=== PATIENT | female | born 1995 | race African-American/Black ===

== ENCOUNTER 2023-02-03 18:15 | Emergency (ER) | payer OTHER, SELFPAY ==
--- NOTE | 2023-02-03 18:16 | ED.LOWEXIN ---
HPI - Extremity Injury (Lower) General Chief Complaint: Extremity Injury, Lower Stated Complaint: leg ankle pain,swollen Time Seen by Provider: 02/03/23 18:16 Source: patient Mode of arrival: ambulatory Limitations: no limitations History of Present Illness HPI Narrative: Igor is a 27-year-old female patient presenting to the clinic today with complaints of left fed pain and swelling. She reports symptoms have been going on for 3 days. She denies any known injury. Related Data Home Medications Medication Instructions Recorded Confirmed ergocalciferol (vitamin D2) 1,250 02/03/23 mcg (50,000 unit) capsule Allergies Allergy/AdvReac Type Severity Reaction Status Date / Time No Known Allergies Allergy Verified 02/03/23 18:30 Review of Systems Review of Systems: Pertinent positives per HPI. Patient denies any fever, chills, rash, headache, visual changes, dizziness, cough, runny nose, sore throat, shortness of breath, chest pain, palpitations, nausea, vomiting, diarrhea, constipation, abdominal pain, or any urinary issues. [facility] Comments At the time of my signature, I reviewed and agree with the nursing past medical, surgical, social, and family history. There is no relevant family history pertinent to the patient complaint. Exam Narrative: General: Well-developed, well nourished, in no apparent distress Head: Normocephalic, atraumatic. Cardio: Regular rate and rhythm, s1 and s2 normal, no murmur appreciated. Resp: Clear to auscultation bilaterally, no rhonchi, rales, wheezing or rubs. Musculoskeletal: No deformity,tender to palpation over the dorsal mid foot and ankle, grossly normal range of motion, pain with plantar/dorsal flexion as well as valgus and varus testing, muscle strength strong and equal, peripheral pulse strong, no edema, no cyanosis, normal gait and station Course Course Emergency Course: Portions of this record may have been created with voice recognition software. Level of Care: Express Care Visit Vital Signs Vital signs: Vital signs reviewed MDM - Extremity Injury (Lower) MDM Narrative Medical decision making narrative: At the time of visit patient is resting comfortably on exam table. I suspect patient has a foot sprain. Discussed taking ibuprofen as needed for pain with rice treatment. Supportive measures were discussed with the patient she voiced understanding discharge instructions and agrees to treatment plan. Return precautions were reviewed Differential Diagnosis Differential diagnosis: Likely ankle sprain and strain, ankle fracture and other (Foot fracture) Discharge Plan Discharge Clinical Impression: Acute pain of left foot Patient Disposition: Home, Self-Care Condition: Stable Instructions: Antibiotic Form, Foot Sprain (ED) Additional Instructions: Rest, ice, elevate May wear Imer wrap to help give your foot and ankle some support. Tylenol/motrin for pain as discussed. Gradually bear weight May apply Aspercreme, blue emu, or Voltaren gel to the affected area No running or sports until healed. Work note given for 2 days Follow up with your PCP if symptoms persist more than 1 week. Prescriptions: No Action ergocalciferol (vitamin D2) 1,250 mcg (50,000 unit) capsule Follow-up/Referrals: [facility] [Primary Care Provider] - Stand Alone Forms: Work/School Release IP Time of Disposition: 18:36 Quality NIHSS Nursing Documentation ED NIHSS nursing documentation: reviewed/agree
[2023-02-03 18:29] VITALS: BP 142/94; PULSE 76; RESP 16; TEMP 36.8; O2SAT 100
[2023-02-03 18:30] VITALS: BP 142/94; PULSE 76; RESP 16; TEMP 36.8; O2SAT 100
== END 2023-02-03 18:40 | disposition home or self-care (01) ==
PROVIDERS: Emergency Provider Nurse Practitioner Family
DX: M79.672 Pain in left foot (principal)
CPT/HCPCS: 99202; G0463

== ENCOUNTER 2023-12-25 17:37 | Emergency (ER) | payer OTHER, SELFPAY ==
[2023-12-25 17:46] VITALS: BP 136/84; PULSE 100; RESP 20; TEMP 36.8; O2SAT 100
--- NOTE | 2023-12-25 17:57 | ED.URI ---
HPI - URI/Sore Throat General Chief Complaint: Dental/Oral Stated Complaint: Dental Pain//Sore Throat Time Seen by Provider: 12/25/23 17:57 Source: patient, RN notes reviewed and old records reviewed Mode of arrival: ambulatory Limitations: no limitations History of Present Illness HPI Narrative: Patient presents with complaints of sore throat and left upper dental pain. She reports that she was being treated for strep throat, but was unable to swallow the pills, so did not finish. Now she is concerned that perhaps she still has strep. She is also complaining of about a left upper dental infection. Patient is 21 weeks gestation. She denies any fever, chills, sweats. She denies any injury or trauma. She has not been taking anything for her symptoms. She is able to manage own secretions, no drooling or stridor Related Data Home Medications Medication Instructions Recorded Confirmed aspirin 81 mg chewable tablet 2 tablet PO DAILY 12/25/23 12/25/23 nifedipine 30 mg tablet,extended 30 mg PO DAILY 12/25/23 12/25/23 release vitamin with calcium 1 tablet PO DAILY 12/25/23 12/25/23 no.72-iron 27 mg-folic acid 1 mg tablet (M-Giuliana Plus) Allergies Allergy/AdvReac Type Severity Reaction Status Date / Time No Known Allergies Allergy Verified 12/25/23 17:39 Review of Systems Review of Systems: All systems reviewed & are unremarkable except as noted in HPI and below Constitutional: Constitutional: Reports no additional constitutional complaints ENT: Reports system reviewed and no additional complaints, except as documented, Reports facial pain, Reports sore throat and Reports other (Dental pain) Cardiovascular: Cardiovascular: Reports no additional cardiovascular complaints Respiratory: Respiratory: Reports no additional respiratory complaints Gastrointestinal: Gastrointestinal: Reports no additional gastrointestinal complaints [facility] Comments At the time of my signature, I reviewed and agree with the nursing past medical, surgical, social, and family history. There is no relevant family history pertinent to the patient complaint. Exam Const: General: cooperative, no acute distress, alert and awake Orientation/consciousness: oriented to person, oriented to place and oriented to time HENMT: Head: normal to inspection Ears: TM's normal bilaterally Mouth: Yes moist mucous membranes Teeth and gingiva: abnormal tooth and associated gingiva (Left upper) Resp: Effort & Inspection: normal respiratory effort and able to speak in complete sentences Auscultation: clear to auscultation bilaterally, no crackles, no rales, no rhonchi and no wheezes Cardio: Palpation: normal PMI Rate: regular rate Rhythm: regular rhythm Heart sounds: S1 normal heart sound present and S2 normal heart sound present Neuro: General: oriented to person, oriented to place and oriented to time Cranial nerves: Yes CN's II-XII intact bilaterally Psych: Appearance: grossly normal Thought process: Normal thought process present Insight: Good insight present (Psych) Judgement: Good judgement present (Psych) Course Course Level of Care: Express Care Visit Vital Signs Vital signs: Vital Signs Temperature 98.2 F 12/25/23 17:46 Pulse Rate 100 12/25/23 17:46 Respiratory Rate 20 12/25/23 17:46 Blood Pressure 136/84 12/25/23 17:46 Pulse Oximetry 100 12/25/23 17:46 Oxygen Delivery Room Air 12/25/23 17:46 Temperature 98.2 F 12/25/23 17:46 Pulse Rate 100 12/25/23 17:46 Respiratory Rate 20 12/25/23 17:46 Blood Pressure 136/84 12/25/23 17:46 Pulse Oximetry 100 12/25/23 17:46 Oxygen Delivery Room Air 12/25/23 17:46 Reviewed Discharge Plan Discharge Clinical Impression: Dental infection Patient Disposition: Home, Self-Care Condition: Stable Instructions: Antibiotic Form, Dental Abscess (ED) Additional Instructions: Take medication as prescribed, follow-up with denti
[2023-12-25 18:10] LABS: EDSTREPNEGPOS1 Negative (Negative)
== END 2023-12-25 18:25 | disposition home or self-care (01) ==
PROVIDERS: Emergency Provider Nurse Practitioner Family
DX: O99.612 Diseases of the digestive system complicating pregnancy, second trimester (principal); Z3A.21 21 weeks gestation of pregnancy; K04.7 Periapical abscess without sinus; Z79.82 Long term (current) use of aspirin
CPT/HCPCS: 87081; 87880; 99213; G0463

== ENCOUNTER 2024-10-04 09:42 | Emergency (ER) | payer OTHER, SELFPAY ==
--- NOTE | ~2024-10-04 | XR_ITS ---
HISTORY: pain after injury. Dorsiflexing, twisting COMPARISON: None TECHNIQUE: 3 views of the right wrist were performed. FINDINGS: No acute fracture is identified. The carpal arcs are intact. Mild radiocarpal joint space narrowing with sclerosis of the distal radius is present. The remaining visualized joint spaces are otherwise preserved. Bone mineralization is age-appropriate. No significant soft tissue swelling is noted. No radiopaque foreign body is identified. IMPRESSION: No acute fracture or dislocation. If clinical suspicion persists, nonemergent follow-up with noncontrast enhanced MRI may provide addit ional information regarding a possible ligamentous injury. Reviewed, dictated and finalized at location A. IMPRESSION: No acute fracture or dislocation. If clinical suspicion persists, nonemergent follow-up with noncontrast enhanced MRI may provide additional information regarding a possible ligamentous injury .
--- NOTE | 2024-10-04 09:44 | ED_ITS ---
HPI - Extremity Injury (Upper) General Chief Complaint: Extremity Injury, Upper Stated Complaint: right hand injury Time Seen by Provider: 10/04/24 09:49 Source: patient, RN notes reviewed and old records reviewed Mode of arrival: ambulatory Limitations: no limitations History of Present Illness HPI narrative: 28-year-old female presents to the [facility] with right forearm and wrist pain since last night. Patient states she was at work last night, a patient bent her wrist back and twisted. Had been given ibuprofen in an Imer wrap. Decreased range of motion. 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 Capillary refill under 2 seconds and positive radial pulse Treatments prior to arrival: NSAIDS and other Related Data Home Medications ?Medication ?Instructions ?Recorded ?Confirmed ?Last Taken ?Type aspirin 81 mg chewable tablet 2 tablet PO DAILY 12/25/23 12/25/23 Unknown History nifedipine 30 mg tablet,extended 30 mg PO DAILY 12/25/23 12/25/23 Unknown History release vitamins with calcium 1 tablet PO DAILY 12/25/23 12/25/23 Unknown History no.72-iron 27 mg-folic acid 1 mg tablet (M- Plus) Allergies Allergy/AdvReac Type Severity Reaction Status Date / Time No Known Allergies Allergy Verified 10/04/24 09:44 Review of Systems Review of Systems: All systems reviewed & are unremarkable except as noted in HPI and below Constitutional: Constitutional: Reports no additional constitutional complaints Musculoskeletal: Musculoskeletal: Reports as per HPI, Reports arthralgias, Denies joint swelling and Denies numbness Integumentary/Breasts: Skin/Breast: Reports system reviewed and no additional complaints, except as docu [facility] Comments At the time of my signature, I reviewed and agree with the nursing past medical, surgical, social, and family history. There is no relevant family history pertinent to the patient complaint. Exam Const: General: cooperative, healthy appearing, comfortable, no acute distress, well developed, alert and well nourished Nutritional Appearance: well nourished Orientation/consciousness: patient oriented x3 Limitations: no limitations HENMT: Head: normal to inspection Eyes: General: appearance normal, both eyes and all related structures Alignment and Position: alignment normal Neck: Neck: normal visual inspection, full ROM, no lymphadenopathy and no meningeal signs Chest: Chest palpation & inspection: normal inspection of the chest Resp: Effort & Inspection: normal respiratory effort and able to speak in complete sentences Skin: General skin exam: normal color and no rashes or lesions noted Neuro: General: patient oriented x3, gait normal, moves all extremities and no meningeal signs Cognition (Neuro): normal cognition Speech: normal speech Gait exam (Neuro): Normal gait present Extrem: General: normal to inspection, full ROM, capillary refill normal and normal gait Right upper extremity: full ROM, elbow/forearm normal to inspection and normal ROM, wrist tenderness, normal ROM and normal vascular exam; no swelling and Extremity exam: right hand normal to inspection, normal capillary refill and neuromotor exam normal wrist extension normal, thumb opposition normal, thumb IP flexion normal, thumb ADduction normal and fingers 2-5 ABduction normal Psych: Appearance: grossly normal and well kempt Mental Status: mental status grossly normal Speech and movement: Normal speech and movement present and Clear speech present Affect: normal affect Attitude: cooperative Course Course Level of Care: Express Care Visit Vital Signs Vital signs: Vital Signs Temperature 97.8 F 10/04/24 09:51 Pulse Rate 85 10/04/24 09:51 Respiratory Rate 20 10/04/24 09:51 Blood Pressure 145/106 H 10/04/24 09:51 Pulse Oximetry 94 10/04/24 09:51 Oxygen Delivery Room Air 10/04/24 09:51 Temperature 97.8 F 10/04/24 09:51 Pulse Rate 85 10/04/24 09:51 Respiratory Rate 20 10/04/24 09:51 Blood Pressure 145/106 H 10/04/24 09:51 Pulse Oximetry 94 10/04/24 09:51 Oxygen Delivery Room Air 10/04/24 09:51 Reviewed MDM - Extremity Injury (Upper) MDM Narrative Medical decision making narrative: Patient sitting in exam room. Patient is nontoxic, vitals stable. Patient presents for right wrist pain after injury No bruising or swelling noted. Tenderness to the distal forearm No snuffbox tenderness X-ray negative Patient appropriate for outpatient treatment with close follow-up Discharge instructions reviewed with patient, as well as provided in writing per nursing staff. The instructions also include specific and strict return/GO TO THE ER as well as f/u information. All questions have been answered, and the patient deny any further questions with discharge and discharge plan. Some parts of this dictation were generated by voice recognition software and may contain typographical and/or grammatical inaccuracies. Differential Diagnosis Differential diagnosis: Likely sprain and strain of wrist and fracture of wrist Imaging Data Radiologist's impression: HISTORY: pain after injury. Dorsiflexing, twisting COMPARISON: None TECHNIQUE: 3 views of the right wrist were performed. FINDINGS: No acute fracture is identified. The carpal arcs are intact. Mild radiocarpal joint space narrowing with sclerosis of the distal radius is present. The remaining visualized joint spaces are otherwise preserved. Bone mineralization is age-appropriate. No significant soft tissue swelling is noted. No radiopaque foreign body is identified. IMPRESSION: No acute fracture or dislocation. If clinical suspicion persists, nonemergent follow-up with noncontrast enhanced MRI may provide additional information regarding a possible ligamentous injury. Critical Care Time Critical Care Time Critical Care Time: No Discharge Plan Discharge Clinical Impression: Right wrist sprain Qualifiers: Encounter type: initial encounter Wrist sprain location: unspecified location Qualified Code(s): S63.501A - Unspecified sprain of right wrist, initial encounter Patient Disposition: Home Condition: Stable Instructions: Antibiotic Form, Wrist Sprain (ED) Additional Instructions: Your Xray did not show a fracture. Ice should be applied to help reduce swelling. It can be used for 20 to 30 minutes, every 2-3 hours while awake. Do not apply ice directly to your skin. Wearing an Imer wrap or purchasing a wrist support brace will help with the discomfort You can alternate ibuprofen 600mg and Tylenol 650mg every 4 hours as needed for pain Please schedule a follow-up visit with your personal physician for further evaluation and treatment within 2 weeks especially if symptoms persist. Today your blood pressure was 145/106. Is recommended you follow-up with your primary care provider within the next 2 weeks to have this rechecked. For new or worsening symptoms go directly to the emergency room Patient Language: Zambian Prescriptions: No Action aspirin 81 mg tablet,chewable 2 tablet PO DAILY nifedipine 30 mg tablet extended release 30 mg PO DAILY M- Plus 27 mg iron- 1 mg tablet 1 tablet PO DAILY Follow-up/Referrals: UNKNOWN,DOCTOR [Non-Staff] - Stand Alone Forms: Work/School Release IP Time of Disposition: 10:16
[2024-10-04 09:51] VITALS: BP 145/106; PULSE 85; RESP 20; TEMP 36.6; O2SAT 94
== END 2024-10-04 10:21 | disposition home or self-care (01) ==
PROVIDERS: Emergency Provider Nurse Practitioner
DX: S63.501A Unspecified sprain of right wrist, initial encounter (principal); X50.9XXA Other and unspecified overexertion or strenuous movements or postures, initial encounter
CPT/HCPCS: 73110; 99213; G0463

== ENCOUNTER 2025-01-09 11:17 | Emergency (ER) | payer OTHER, SELFPAY ==
--- NOTE | ~2025-01-09 | XR_ITS ---
Examination: XR knee RT min 4V Clinical History: pain Comparison: None Technique: 4 views right knee Findings/impression: 1. No fracture, dislocation, or effusion right knee. Reviewed, dictated and finalized at location R.
[2025-01-09 11:25] VITALS: BP 137/93; PULSE 77; RESP 16; TEMP 36.7; O2SAT 100
--- NOTE | 2025-01-09 12:21 | ED_ITS ---
HPI - Extremity Injury (Lower) General Chief Complaint: Extremity Injury, Lower Stated Complaint: right knee pain Time Seen by Provider: 01/09/25 12:00 Source: patient and RN notes reviewed Mode of arrival: ambulatory Limitations: no limitations History of Present Illness HPI Narrative: 29-year-old female Presents Express Care complaining of injury to right knee. Patient denies any apparent falls or injuries was a yesterday she felt her knee give out, since then she continues to have right knee pain. Patient reports the pain is worse with movement of her right knee or when she is bearing weight. Patient denies any swelling. Patient's has been taking Tylenol with some relief. Patient denies any numbness, tingling or any other injuries. Patient reports a history of a a ligament injury of her right knee but did not require surgery to her right knee. Related Data Home Medications ?Medication ?Instructions ?Recorded ?Confirmed ?Last Taken ?Type ergocalciferol (vitamin D2) 1,250 01/09/25 Unknown H istory mcg (50,000 unit) capsule nifedipine 30 mg tablet,extended mg PO 01/09/25 Unkno wn History release 24 hr sertraline 50 mg tablet mg 01/09/25 Unknown History Allergies Allergy/AdvReac Type Severity Reaction Status Date / Time No Known Allergies Allergy Verified 10/04/24 09:44 Review of Systems Review of Systems: CONSTITUTIONAL: Denies fever, chills, or sweats. EYES: Denies visual changes, redness, or discharge. ENT: Denies rhinorrhea, congestion, sore throat, or otalgia. CARDIOVASCULAR: Denies chest pain, palpitations, or edema. RESPIRATORY: Denies cough or dyspnea. GASTROINTESTINAL: Denies abdominal pain, nausea, vomiting, or diarrhea. GENITOURINARY: Denies dysuria or hematuria. SKIN: Denies rash, wound, or itching. MUSCULOSKELETAL: Denies back pain, joint pain, or myalgia. Positive for right knee pain NEUROLOGIC: Denies headache, numbness, or weakness. PSYCHIATRIC: Denies anxiety or depression. All other systems reviewed are negative, except as documented in HPI. [facility] Comments At the time of my signature, I reviewed and agree with the nursing past medical, surgical, social, and family history. There is no relevant family history pertinent to the patient complaint. Exam Narrative: GENERAL: This is a well-nourished, well-developed adult, in no apparent distress. They are non ill-appearing, nontoxic appearing. HEAD: normocephalic, atraumatic. EYES: Sclera clear/white. Vision is grossly intact. Conjunctiva normal. Extraocular movement intact. EARS: External ears normal Hearing grossly intact. NOSE: External nose normal THROAT: Mucous membranes moist NECK: Neck supple CARDIOVASCULAR: Regular rate and rhythm RESPIRATORY: Respiratory rate normal, respiratory effort nonlabored, no respiratory distress NEURO: awake, alert, and oriented to person, place and time. There were no obvious focal neurologic abnormalities. EXTREMITIES: No obvious deformity, injury, swelling, bruising, redness. There is pain through full range of motion. Mild tenderness throughout the knee. C apillary refill less than 3 seconds. Right popliteal Pulse 2 +palpable. Normal sensation. Neurovascular status intact distal injury. No valgus or varus laxity. Negative anterior drawer test. BACK: Nontender without deformity. Course Course Emergency Course: Portions of this record may have been created with voice recognition software Level of Care: Express Care Visit Vital Signs Vital signs: Vital Signs Temperature 98.0 F 01/09/25 11:25 Pulse Rate 77 01/09/25 11:25 Respiratory Rate 16 01/09/25 11:25 Blood Pressure 137/93 H 01/09/25 11:25 Pulse Oximetry 100 01/09/25 11:25 Oxygen Delivery Room Air 01/09/25 11:25 Temperature 98.0 F 01/09/25 11:25 Pulse Rate 77 01/09/25 11:25 Respiratory Rate 16 01/09/25 11:25 Blood Pressure 137/93 H 01/09/25 11:25 Pulse Oximetry 100 01/09/25 11:25 Oxygen Delivery Room Air 01/09/25 11:25 Reviewed MDM - Extremity Injury (Lower) MDM Narrative Medical decision making narrative: X-ray negative for any fractures or acute findings. Likely a knee sprain. Patient previously seen an orthopedist at [facility], by she may follow up with the more follow-up with our orthopedist on-call. Discussed physical exam findings. Advised supportive measures and signs/symptoms to go to the ER. Pt is appropriate for outpt treatment and f/u. Differential Diagnosis Differential diagnosis: Likely acute internal derangement of knee and other (Knee sprain, knee contusion, knee fracture, ligament injury) Imaging Data Radiologist's impression: Findings/impression: 1. No fracture, dislocation, or effusion right knee. Critical Care Time Critical Care Time Critical Care Time: No Discharge Plan Discharge Clinical Impression: Knee pain, right Patient Disposition: Home Condition: Stable Instructions: Antibiotic Form, Knee Pain (ED) Additional Instructions: The x-ray right knee is negative for any fractures or acute findings. Rest and elevate the leg; bear weight as tolerated Apply ice 15-20 minute intervals several times a day Keep it wrapped with LIZZIE or use a knee brace You may take ibuprofen 600 mg to 800 mg every 6-8 hours. Do not exceed more than 800 mg of ibuprofen per dose. Do not exceed more than 3200 mg ibuprofen in a day. You may take up to 1000 mg Tylenol every 6-8 hours. Do not exceed 1000 mg per dose, do exceed more than 4000 mg of Tylenol in a day. Follow up with your orthopedist in 1 week. Patient Language: Thai Prescriptions: No Action nifedipine 30 mg tablet extended release 24hr PO ergocalciferol (vitamin D2) 1,250 mcg (50,000 unit) capsule sertraline 50 mg tablet Follow-up/Referrals: Lorene,Shaneka [Other] Austen Oconnor MD [Physician, Orthopedics] Stand Alone Forms: Work/School Release IP Time of Disposition: 12:19
== END 2025-01-09 12:25 | disposition home or self-care (01) ==
DX: M25.561 Pain in right knee (principal); I10 Essential (primary) hypertension
CPT/HCPCS: 73564; 99213; G0463